=== PATIENT | female | born 1995 | race Caucasian/White ===

== ENCOUNTER → 2017-06-15 | Outpatient (CLI) | payer BC ==
--- NOTE | 2017-06-15 18:37 | US ---
EXAMINATION TYPE: US abdomen complete DATE OF EXAM: 06/15/2017 COMPARISON: NONE CLINICAL HISTORY: Epigastric R10.13. 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 There is a dominant 8 cm cyst on the l ower pole. No hydronephrosis. Absent right kidney. No gallstones or dilated ducts.
== END | disposition home or self-care (01) ==
LOC: RADUSMAIN 17:40
PROVIDERS: ATTEND Internal Medicine
DX: N28.81 Hypertrophy of kidney (principal); N28.1 Cyst of kidney, acquired
CPT/HCPCS: 76700

== ENCOUNTER → 2017-07-09 | Outpatient (CLI) | payer BC ==
--- NOTE | 2017-07-09 09:59 | NM ---
EXAMINATION TYPE: NM hepatobiliary w EF DATE OF EXAM: 07/09/2017 COMPARISON: NONE HISTORY: Pain TECHNIQUE: After the intravenous administration of 5.2 mCi Tc 99m Mebrofenin hepatobiliary scintigrap hy is performed. Immediate images post injection. FINDINGS: There is satisfactory initial accumulation of tracer by the liver. The gallbladder is visualized wit hin 20 minutes. The small bowel activity is noted within 18 minutes. At one hour 8 ounces of oral e nsure plus is given to mimic CCK and gallbladder ejection fraction is calculated at 71 %, in the norm al range. Therefore there is no scintigraphic evidence of cystic or common bile duct obstruction to suggest acute cholecystitis or gallbladder dyskinesia. IMPRESSION: Exam is within normal limits.
== END | disposition home or self-care (01) ==
LOC: RADNMMAIN 06:59
PROVIDERS: ATTEND Internal Medicine
DX: R10.13 Epigastric pain (principal)
CPT/HCPCS: 78226; A9537

== ENCOUNTER → 2019-08-16 | Outpatient (CLI) | payer SELFPAY ==
[2019-08-16 12:53] LABS: Basophils % (A) 0 %; Eosinophils # (A) 0.1 k/uL (0-0.7); Eosinophils % (A) 2 %; HGB 13.1 gm/dL (11.4-16.0); Lymphocytes # (A) 2.9 k/uL (1.0-4.8); Lymphocytes % (A) 38 %; MCH 29.6 pg (25.0-35.0); MCHC 33.5 g/dL (31.0-37.0); MCV 88.6 fL (80.0-100.0); Mean Platelet Volume 8.9; Monocytes # (A) 0.6 k/uL (0-1.0); Monocytes % (A) 8 %; Neutrophils # (A) 3.8 k/uL (1.3-7.7); Neutrophils % (A) 50 %; Platelet Count 243 k/uL (150-450); RBC 4.41 m/uL (3.80-5.40); RDW 13.4 % (11.5-15.5); WBC 7.6 k/uL (3.8-10.6)
[2019-08-16 18:40] LABS: African American GFR (CKD) 73.3 (60.0-200.0); Anion Gap 5.8 mmol/L (4.00-12.00); BUN/Creat Ratio 18.33 Ratio (12.00-20.00); Calcium 9.6 mg/dL (8.7-10.3); Carbon Dioxide 28.2 mmol/L (21.6-31.8); Magnesium 1.9 mg/dL (1.5-2.4); Non-African American GFR(CKD) 63.2 (60.0-200.0); Potassium 3.8 mmol/L (3.5-5.5)
[2019-08-16 19:56] LABS: Urine Creatinine 55.8 mg/dL
== END | disposition home or self-care (01) ==
LOC: LABWHC1 11:20
PROVIDERS: ATTEND Internal Medicine Nephrology
DX: I10 Essential (primary) hypertension (principal); E55.9 Vitamin D deficiency, unspecified; Q61.2 Polycystic kidney, adult type
CPT/HCPCS: 36415; 80048; 82043; 82306; 82570; 83735; 85025

== ENCOUNTER → 2021-05-21 | Outpatient (CLI) | payer BC ==
[2021-05-21 19:03] LABS: Basophils # (A) 0.02 X 10*3/uL (0.00-0.10); Basophils % (A) 0.2 %; Eosinophils # (A) 0.14 X 10*3/uL (0.04-0.35); Eosinophils % (A) 1.7 %; HCT 43.8 % (37.2-46.3); HGB 13.6 g/dL (12.0-15.0); Immature Grans, Automated 0.2 %; Lymphocytes # (A) 2.39 X 10*3/uL (0.90-5.00); Lymphocytes % (A) 29.2 %; MCH 27.6 pg (27.0-32.0); MCHC 31.1 g/dL (32.0-37.0); MCV 88.8 fL (80.0-97.0); Monocytes # (A) 0.74 X 10*3/uL (0.20-1.00); NRBC Per 100 WBC 0 /100 WBCS (0.0-0.0); Neutrophils # (A) 4.87 X 10*3/uL (1.80-7.70); Neutrophils % (A) 59.7 %; Platelet Count 253 X 10*3/uL (140-440); RBC 4.93 X 10*6/uL (4.10-5.20); RDW 14.2 % (11.5-14.5); WBC 8.18 X 10*3/uL (4.50-10.00)
[2021-05-22 01:41] LABS: % Iron Saturation 9.86 (12.00-45.00); African American GFR (CKD) 68.6 (60.0-200.0); Anion Gap 18.3 mmol/L (10.00-18.00); BUN/Creat Ratio 16.67 Ratio (12.00-20.00); Calcium 9.8 mg/dL (8.7-10.3); Carbon Dioxide 20.4 mmol/L (20.0-27.5); Ferritin 32.8 ng/mL (10.0-291.0); Non-African American GFR(CKD) 59.2 (60.0-200.0)
[2021-05-22 08:02] LABS: Creatinine,Urine Random 42.5 mg/dL (28.0-217.0); Total Protein,Urine Random 27.3 mg/dL (0.0-13.5)
== END | disposition home or self-care (01) ==
LOC: LABWHC1 09:24
PROVIDERS: ATTEND Internal Medicine Nephrology
DX: I10 Essential (primary) hypertension (principal); D64.9 Anemia, unspecified; Q61.2 Polycystic kidney, adult type
CPT/HCPCS: 36415; 80048; 82570; 82728; 83540; 83550; 83970; 84156; 85025

== ENCOUNTER 2021-08-15 22:45 | Observation (INO) | payer BC ==
[~2021-08-15 22:45] MED LIST: LACTATED RINGERS 1,000 ML IV ONE
[2021-08-15] MEDS ORDERED: METOCLOPRAMIDE 5 MG/ML 2 ML VIAL IVP STA (22:52)
--- NOTE | 2021-08-15 23:13 | ED ---
Recheck HPI - General Chief Complaint: ENT Stated Complaint: Tonsils Bleeding Post-Op Time Seen by Provider: 08/15/21 23:03 Source: patient, RN notes reviewed, old records reviewed Mode of arrival: ambulatory Limitations: no limitations - History of Present Illness Initial Comments: This is a 26-year-old female to the emergency or today. Patient Dese for evaluation regards to postoperative bleeding. Left tonsillar bleeding bitonsillar bleeding mild. Patient is 1 week postop. No history of bleeding disorder. Mild nausea no lightheadedness or dizziness no significant pain. Patient was sent to ER by her ear nose and throat surgeon for evaluation and treatment MD Complaint: wound re-check -: hour(s) Returns Today for: wound recheck Symptoms Since Prior Visit: worsening pain (worsening bleeding) Context: planned re-check Associated Symptoms: none Treatments Prior to Arrival: other (Patient is swishing and spitting ice chips with occasional help but no resolution) - Related Data Allergies Allergy/AdvReac Type Severity Reaction Status Date / Time adhesive AdvReac Rash/Hives Verified 08/15/21 22:51 Review of Systems ROS Statement: Those systems with pertinent positive or pertinent negative responses have been documented in the HPI. ROS Other: All systems not noted in ROS Statement are negative. Past Medical History Additional Past Medical History / Comment(s): polycystic kidney deisease. one kidney. History of Any Multi-Drug Resistant Organisms: None Reported Additional Past Surgical History / Comment(s): tonsil surgery Past Psychological History: No Psychological Hx Reported Smoking Status: Never smoker Past Alcohol Use History: None Reported Past Drug Use History: None Reported General Exam General appearance: alert, in no apparent distress Head exam: Present: atraumatic, normocephalic, normal inspection Eye exam: Present: normal appearance, PERRL, EOMI. Absent: scleral icterus, conjunctival injection, periorbital swelling ENT exam: Present: normal exam. Absent: normal oropharynx (Patient does have posterior bleeding from pharyngeal tonsils, more so on the left and right) Neck exam: Present: normal inspection. Absent: tenderness, meningismus, lymphadenopathy Respiratory exam: Present: normal lung sounds bilaterally. Absent: respiratory distress, wheezes, rales, rhonchi, stridor Cardiovascular Exam: Present: regular rate, normal rhythm, normal heart sounds. Absent: systolic murmur, diastolic murmur, rubs, gallop, clicks GI/Abdominal exam: Present: soft, normal bowel sounds. Absent: distended, tenderness, guarding, rebound, rigid Extremities exam: Present: normal inspection, full ROM, normal capillary refill. Absent: tenderness, pedal edema, joint swelling, calf tenderness Back exam: Present: normal inspection Neurological exam: Present: alert, oriented X3, CN II-XII intact Psychiatric exam: Present: normal affect, normal mood Skin exam: Present: warm, dry, intact, normal color. Absent: rash Course Vital Signs 08/15/21 22:46 Temperature 97.8 F Pulse Rate 120 H Respiratory 19 Rate Blood Pressure 163/99 O2 Sat by Pulse 100 Oximetry - Reevaluation(s) Reevaluation #1: 08/15/21 23:25 Medical record is reviewed Reevaluation #2: 08/15/21 23:25 Patient is tachycardic, mildly anxious, not lightheaded dizzy and not syncopal Reevaluation #3: 08/15/21 23:25 Patient informed results and questions answered - Consultations Consultation #1: Dr. Caldera did see patient in the emergency department Medical Decision Making - Medical Decision Making 26 female who presents to the emergency department today. Patient presents today for evaluation regards to postoperative bleeding after tonsillectomy. Elective surgery 1 week ago. Patient bleeding was stopped by started to get worse today after fall complaining. Patient presents to be admitted to the operating room for recurrent procedure to stop bleeding Disposition Clinical Impression: Postoperative bleeding from mouth Disposition: ADMITTED IP TO THIS [facility] Condition: Fair Is patient prescribed a controlled substance at d/c from ED?: No Referrals: Bridgette Mckinley NPC [Primary Care Provider] - 1-2 days Time of Disposition: 23:30
[2021-08-15] MEDS: SODIUM CHLORIDE 0.9% 1,000 ML IV SCH (23:18)
[2021-08-15] MEDS ORDERED: NALOXONE 0.4 MG/ML 1 ML VIAL IV PRN (23:22)
[2021-08-15] MEDS ORDERED: MORPHINE SULFATE 4 MG/ML SYRINGE IV PRN (23:22)
[2021-08-15] MEDS ORDERED: LORazepam 2 MG/ML INJ IV PRN (23:22)
[2021-08-15 23:27] LABS: Basophils # (A) 0.1 k/uL (0-0.2); Basophils % (A) 1 %; Eosinophils # (A) 0.2 k/uL (0-0.7); Eosinophils % (A) 2 %; HCT 39.8 % (34.0-46.0); Lymphocytes # (A) 2.9 k/uL (1.0-4.8); Lymphocytes % (A) 25 %; MCH 28.8 pg (25.0-35.0); MCHC 32.6 g/dL (31.0-37.0); MCV 88.1 fL (80.0-100.0); Mean Platelet Volume 8.5; Monocytes # (A) 0.7 k/uL (0-1.0); Monocytes % (A) 6 %; Neutrophils # (A) 7.5 k/uL (1.3-7.7); Neutrophils % (A) 65 %; Platelet Count 316 k/uL (150-450); RBC 4.51 m/uL (3.80-5.40); RDW 12.8 % (11.5-15.5); WBC 11.4 k/uL (3.8-10.6)
--- NOTE | 2021-08-15 23:29 | P.GSHP ---
History of Present Illness H&P Date: 08/15/21 Chief Complaint: Bleeding This patient is a 26-year-old white female who had a tonsillectomy 8 days ago and called me this afternoon with some bleeding. I instructed her to gargle with ice water and initially it worked to stop the bleeding but unfortunately from the left side of her throat is still seeing some blood. Her bleeding was a bit aggressive with some crunchy foods hard of the bleeding. I've had her come to my office and evaluated her. She had a large blood clot on the left side with some bleeding around the blood clot. I instructed to go to [facility] where we would put her under general anesthetic and control this bleeding. All risks, benefits and alternative therapies were discussed in detail. Consent was obtained and all questions were answered. - Constitutional Constitutional: Denies anorexia - EENT Ears, nose, mouth and throat: Denies dental pain - Cardiovascular Cardiovascular: Denies chest pain - Gastrointestinal Gastrointestinal: Denies belching - Genitourinary (Female) Genitourinary: Denies abnormal vaginal bleeding - Menstruation Menstruation: Denies amenorrhea - Genitourinary (Male) Genitourinary: Denies flank pain - Musculoskeletal Musculoskeletal: Denies hot joints - Integumentary Integumentary: Denies boils - Neurological Neurological: Denies change in speech - Psychiatric Psychiatric: Denies change in appetite - Endocrine Endocrine: Denies excessive sweating - Allergic/Immunologic Allergic/Immunologic: Denies allergic rhinitis Past Medical History Additional Past Medical History / Comment(s): polycystic kidney deisease. one kidney. History of Any Multi-Drug Resistant Organisms: None Reported Additional Past Surgical History / Comment(s): tonsil surgery Past Psychological History: No Psychological Hx Reported Smoking Status: Never smoker Past Alcohol Use History: None Reported Past Drug Use History: None Reported Medications and Allergies Allergies Allergy/AdvReac Type Severity Reaction Status Date / Time adhesive AdvReac Rash/Hives Verified 08/15/21 22:51 Surgical - Exam Osteopathic Statement: *. No significant issues noted on an osteopathic structural exam other than those noted in the History and Physical/Consult. Vital Signs Temp Pulse Resp BP Pulse Ox 97.8 F 120 H 19 163/99 100 08/15/21 22:46 08/15/21 22:46 08/15/21 22:46 08/15/21 22:46 08/15/21 22:46 - General well developed, well nourished, no distress, moderate distress, obese - Eyes Head is normocephalic, the face is symmetric, there is no abnormal movements. There is no tenderness of the scalp. Ears demonstrated that the auricles are well-formed canals are clear the tympanic members are without bulging or retraction. Nose is patent. Mouth and throat blood clot seen on the left side of the throat. Some small amount of bleeding is noted. Neck is unremarkable. PERRL, normal ocular movement - ENT normal pinna, normal nares - Neck no masses, no bruits - Respiratory normal expansion - Abdomen Abdomen: soft - Integumentary no rash, no growths - Neurologic normal coordination, normal sensation - Musculoskeletal normal gait, normal posture - Psychiatric oriented to time, oriented to person, oriented to place, speech is normal, memory intact Assessment and Plan (1) Hemorrhage, tonsil, postoperative Current Visit: Yes Status: Acute Code(s): FGG0302 - SNOMED Code(s): 650592179 Plan: We've elected to take her to the operating room for control of this bleeding from her left tonsil fossa. Her diet was a bit aggressive which is the most likely etiology for the bleeding. We'll be controlling the bleeding. All risks, benefits and alternative therapies were discussed in detail. Consent was obtained and all questions were answered.
[2021-08-15 23:37] LABS: INR 0.9 (<1.2); Prothrombin Time 10.4 sec (9.0-12.0)
[2021-08-15] MEDS ORDERED: IV FLUID CONTINUATION 1,000 ML IV ONE (23:52)
[2021-08-15 23:55] LABS: Albumin 4.1 g/dL (3.5-5.0); Calcium 8.9 mg/dL (8.4-10.2); Potassium 4.4 mmol/L (3.5-5.1); Total Bilirubin 0.2 mg/dL (0.2-1.3); Total Protein 6.9 g/dL (6.3-8.2)
[2021-08-15] MEDS ORDERED: ONDANSETRON 4 MG/2 ML VIAL ONE (23:57)
[2021-08-15] MEDS ORDERED: DEXAMETHASONE SOD PHOSPHATE 10 MG/ML 1 ML VIAL ONE (23:57)
[2021-08-15] MEDS ORDERED: fentaNYL (PF) 50 MCG/ML 2 ML AMP ONE (23:57)
[2021-08-15] MEDS ORDERED: PROPOFOL 10 MG/ML 20 ML VIAL IV ONE (23:57)
[2021-08-15] MEDS ORDERED: MIDAZOLAM 2 MG/2 ML VIAL ONE (23:57)
[2021-08-15 23:59] LABS: Appearance,Urine Clear (Clear); Bacteria,Urine Rare /hpf; Bilirubin,Urine Negative (Negative); Blood,Urine Large (Negative); Color,Urine Light Yellow; Glucose,Urine (UA) Negative (Negative); Ketones,Urine Negative (Negative); Leukocyte Esterase,Urine Negative (Negative); Mucus,Urine Rare /hpf; Nitrite,Urine Negative (Negative); PH, Urine 5.5 (5.0-8.0); Protein,Urine Trace (Negative); RBC,Urine 98 /hpf (0-5); Specific Gravity,Urine 1.008 (1.001-1.035); Squamous Epithelial Cell,Urine 4 /hpf (0-4); Urobilinogen,Urine <2.0 mg/dL (<2.0); WBC,Urine 4 /hpf (0-5)
[2021-08-15] MEDS ORDERED: DEXAMETHASONE SOD PHOSPHATE 4 MG/ML 1 ML VIAL IVP ONE (23:59)
[2021-08-15] MEDS ORDERED: ONDANSETRON 4 MG/2 ML VIAL IVP ONE (23:59)
[2021-08-16] MEDS ORDERED: BUPIVACAIN-EPI 0.25%-1:200,000 30 ML VIAL SQ ONE ×2 (00:31)
--- NOTE | 2021-08-16 01:07 | P.OP ---
Date of Procedure: 08/16/21 Preoperative Diagnosis: Postop tonsil bleed Postoperative Diagnosis: Same Procedure(s) Performed: Control of postop tonsil bleed Anesthesia: JEA Surgeon: Mike Caldera Estimated Blood Loss (ml): 20 Pathology: none sent Condition: stable Disposition: PACU Indications for Procedure: This patient had a tonsillectomy 9 days ago and this afternoon has some bleeding. She was seen in the office if she has a hyperactive gag reflex and I was unable to evacuate the clot and control the bleeding in the office. Therefore we decided to take her to the operating room and do this under control situation. All risks, benefits and alternative therapies were discussed in detail. Consent was obtained and all questions were answered. Operative Findings: Bleeding from the left mid tonsil fossa was noted Description of Procedure: Patient was taken to the operative room placed in the supine position. A general inhalation anesthetic was administered to the patient by mask and subsequently intubated with a cuffed endotracheal tube by the department of anesthesia with a functioning IV line in place. Patient was monitored throughout the entire case by the department of anesthesia. The mouth was opened with the McIvor mouthgag and a clot on the left side was evacuated. Bleeding was noted and with use of a Coblation E BX 70 handpiece on the cauterization setting bipolar this area was cauterized and sealed. Both sides were evaluated extensively and no bleeding was encountered. We injected the peritonsillar area with Marcaine bilaterally with aspiration to prevent any intravascular injection. Patient tolerated this well and she'll be discharged with a follow-up appointment for next week.
[2021-08-16 02:16] VITALS: RESP 20
[2021-08-16] MEDS: SODIUM CHLORIDE 0.9% 1,000 ML IV SCH (03:37)
[2021-08-16 04:37] VITALS: BP 116/77; PULSE 91; TEMP 97
== END 2021-08-16 09:00 | disposition home or self-care (01) ==
LOC: EC 22:45 → 5NMEDONC 23:24 → UNDODISOB 08-16 01:47
PROVIDERS: ADMIT Otolaryngology; ATTEND Otolaryngology
DX: J95.830 Postprocedural hemorrhage of a respiratory system organ or structure following a respiratory system procedure (principal); Q61.3 Polycystic kidney, unspecified; R11.0 Nausea; E66.9 Obesity, unspecified; Z68.36 Body mass index [BMI] 36.0-36.9, adult; Y83.6 Removal of other organ (partial) (total) as the cause of abnormal reaction of the patient, or of later complication, without mention of misadventure at the time of the procedure; Z91.048 Other nonmedicinal substance allergy status
CPT/HCPCS: 42962; 36415; 86900; 86901; 80053; 85025; 85610; 85730; 86850; 81001; 81025; G0378 ×2; J2250; J1100 ×2; J2765; J2405; J3010; J2704

== ENCOUNTER → 2021-08-26 | Outpatient (CLI) | payer BC ==
[2021-08-26 22:24] LABS: Basophils # (A) 0.02 X 10*3/uL (0.00-0.10); Basophils % (A) 0.4 %; Eosinophils # (A) 0.09 X 10*3/uL (0.04-0.35); Eosinophils % (A) 1.8 %; HGB 10.5 g/dL (12.0-15.0); Immature Grans, Automated 0.2 %; Lymphocytes # (A) 1.87 X 10*3/uL (0.90-5.00); MCH 28.1 pg (27.0-32.0); MCHC 32.8 g/dL (32.0-37.0); MCV 85.6 fL (80.0-97.0); Mean Platelet Volume 11.5 fL (9.5-12.2); Monocytes # (A) 0.55 X 10*3/uL (0.20-1.00); Monocytes % (A) 10.9 %; NRBC Per 100 WBC 0 /100 WBCS (0.0-0.0); Neutrophils # (A) 2.51 X 10*3/uL (1.80-7.70); Neutrophils % (A) 49.7 %; Platelet Count 313 X 10*3/uL (140-440); RBC 3.74 X 10*6/uL (4.10-5.20); RDW 13.1 % (11.5-14.5); WBC 5.05 X 10*3/uL (4.50-10.00)
[2021-08-26 23:00] LABS: Appearance,Urine Clear (Clear); Bilirubin,Urine Negative (Negative); Blood,Urine Negative (Negative); Color,Urine Yellow (Yellow); Ketones,Urine Negative (Negative); Nitrite,Urine Negative (Negative); Specific Gravity,Urine 1.012 (1.001-1.030); Urobilinogen,Urine 0.2 (0.2,1.0)
[2021-08-26 23:11] LABS: African American GFR (CKD) 59.9 (60.0-200.0); BUN/Creat Ratio 10.36 Ratio (12.00-20.00); Blood Urea Nitrogen 14.5 mg/dL (9.0-27.0); Calcium 9.4 mg/dL (8.7-10.3); Non-African American GFR(CKD) 51.7 (60.0-200.0)
== END | disposition home or self-care (01) ==
LOC: LABWHC1 14:51
PROVIDERS: ATTEND Internal Medicine Nephrology
DX: N18.31 Chronic kidney disease, stage 3a (principal); Q61.2 Polycystic kidney, adult type; E55.9 Vitamin D deficiency, unspecified
CPT/HCPCS: 36415; 80048; 81001; 85025

== ENCOUNTER → 2021-11-22 | Outpatient (CLI) | payer BC ==
[2021-11-22 11:02] LABS: Basophils % (A) 0 %; Eosinophils # (A) 0.1 k/uL (0-0.7); Eosinophils % (A) 2 %; HCT 43.3 % (34.0-46.0); HGB 13.9 gm/dL (11.4-16.0); Lymphocytes # (A) 1.8 k/uL (1.0-4.8); Lymphocytes % (A) 26 %; MCH 28.2 pg (25.0-35.0); MCHC 32.1 g/dL (31.0-37.0); Mean Platelet Volume 8.6; Monocytes # (A) 0.4 k/uL (0-1.0); Monocytes % (A) 6 %; Neutrophils # (A) 4.5 k/uL (1.3-7.7); Neutrophils % (A) 65 %; Platelet Count 228 k/uL (150-450); RBC 4.92 m/uL (3.80-5.40); RDW 14.7 % (11.5-15.5); WBC 6.9 k/uL (3.8-10.6)
[2021-11-22 11:08] LABS: African American GFR (CKD) 51 (>60 ml/min/1.73 sqM); Anion Gap 13 mmol/L; Blood Urea Nitrogen 23 mg/dL (7-17); Carbon Dioxide 22 mmol/L (22-30); Chloride 106 mmol/L (98-107); Glucose 116 mg/dL (74-99); Non-African American GFR(CKD) 44 (>60 ml/min/1.73 sqM); Sodium 141 mmol/L (137-145)
[2021-11-22 11:32] LABS: Calcium 9.1 mg/dL (8.4-10.2)
[2021-11-22 12:15] LABS: Creatinine,Urine Random 57.1 mg/dL; Protein/Creatinine Ratio,Urine 0.578
[2021-11-22 16:19] LABS: Ferritin 53.9 ng/mL (10.0-291.0); Iron 92 ug/dL (50-170)
== END | disposition home or self-care (01) ==
LOC: LABWHC1 10:11
PROVIDERS: ATTEND Internal Medicine Nephrology
DX: D63.1 Anemia in chronic kidney disease (principal); Q61.2 Polycystic kidney, adult type; I10 Essential (primary) hypertension; N18.31 Chronic kidney disease, stage 3a
CPT/HCPCS: 36415; 80048; 82570; 82728; 83540; 83970; 84156; 85025

== ENCOUNTER → 2022-05-27 | Outpatient (CLI) | payer BC ==
[2022-05-27 17:54] LABS: Creatinine,Urine Random 53.8 mg/dL; Protein/Creatinine Ratio,Urine 2.509
[2022-05-27 23:10] LABS: Basophils # (A) 0.02 X 10*3/uL (0.00-0.10); Basophils % (A) 0.2 %; Eosinophils # (A) 0.08 X 10*3/uL (0.04-0.35); Eosinophils % (A) 0.9 %; HCT 47.8 % (37.2-46.3); HGB 15.2 g/dL (12.0-15.0); Immature Grans, Automated 0.3 %; Lymphocytes # (A) 2.35 X 10*3/uL (0.90-5.00); Lymphocytes % (A) 26.3 %; MCHC 31.8 g/dL (32.0-37.0); Mean Platelet Volume 12.1 fL (9.5-12.2); Monocytes # (A) 0.71 X 10*3/uL (0.20-1.00); NRBC Per 100 WBC 0 /100 WBCS (0.0-0.0); Neutrophils # (A) 5.73 X 10*3/uL (1.80-7.70); Neutrophils % (A) 64.3 %; Platelet Count 247 X 10*3/uL (140-440); RBC 5.25 X 10*6/uL (4.10-5.20); RDW 13.3 % (11.5-14.5); WBC 8.92 X 10*3/uL (4.50-10.00)
[2022-05-28 00:02] LABS: % Iron Saturation 25.32 (12.00-45.00); African American GFR (CKD) 50.3 (60.0-200.0); Anion Gap 14.2 mmol/L (10.00-18.00); BUN/Creat Ratio 13.7 Ratio (12.00-20.00); Blood Urea Nitrogen 22.2 mg/dL (9.0-27.0); Calcium 9.7 mg/dL (8.7-10.3); Carbon Dioxide 22.8 mmol/L (20.0-27.5); Ferritin 68.2 ng/mL (10.0-291.0); Non-African American GFR(CKD) 43.4 (60.0-200.0); Potassium 4.3 mmol/L (3.5-5.5)
== END | disposition home or self-care (01) ==
LOC: LABWHC1 15:32
PROVIDERS: ATTEND Internal Medicine Nephrology
DX: I12.9 Hypertensive chronic kidney disease with stage 1 through stage 4 chronic kidney disease, or unspecified chronic kidney disease (principal); N18.31 Chronic kidney disease, stage 3a; D63.1 Anemia in chronic kidney disease; Q61.2 Polycystic kidney, adult type
CPT/HCPCS: 36415; 80048; 82570; 82728; 83540; 83550; 83970; 84156; 85025

== ENCOUNTER → 2022-06-10 | Outpatient (CLI) | payer BC ==
--- NOTE | 2022-06-10 12:45 | US ---
EXAMINATION TYPE: US kidneys/renal and bladder DATE OF EXAM: 06/10/2022 COMPARISON: US abdomen 2018 CLINICAL HISTORY: N18.30CHRONIC KIDNEY DISEASE, STAGE 3 UNSPECIFIED. CKD stage 3, right kidney remov ed as a child for Wilm's tumor EXAM MEASUREMENTS: Right Kidney: Surgically absent Left Kidney: 17.3 x 7.8 x 7.5 cm Right Kidney: Surgically absent Left Kidney: Enlarged, multicystic with largest cyst at lower pole= 12.1 x 8.6 x 10.6 cm. increased i n size when compared to prior Bladder: wnl Bilateral Jets seen: No Right kidney is surgically absent. The urinary bladder is adequately distended. Bilateral ureteral j ets are not seen. Left kidney redemonstrates enlargement and increased cortical echogenicity with poo r corticomedullary differentiation and few tiny thin-walled cysts and large exophytic thin-walled cys t lower pole level measuring over 10 cm in size long axis. No left-sided hydronephrosis. IMPRESSION: Hypertrophied left kidney without hydronephrosis redemonstrated. No significant change fr om prior.
== END | disposition home or self-care (01) ==
LOC: RADUSWWP 12:11
PROVIDERS: ATTEND Internal Medicine Nephrology
DX: N18.32 Chronic kidney disease, stage 3b (principal); N28.81 Hypertrophy of kidney; Q61.2 Polycystic kidney, adult type
CPT/HCPCS: 76770